=== PATIENT | female | born 1955 | race Caucasian/White ===

== ENCOUNTER 2023-04-25 11:24 | Outpatient (CLI) | payer MEDICARE, OTHER | END 2023-04-25 11:25 | disposition home or self-care (01) | LOC: CSHULT 11:24 | PROVIDERS: ATTEND Family Medicine | DX: R09.89 Other specified symptoms and signs involving the circulatory and respiratory systems (principal); E04.1 Nontoxic single thyroid nodule | CPT/HCPCS: 93880 ==

== ENCOUNTER 2024-04-12 09:34 | Day surgery (SDC) | payer MEDICARE ==
[2024-04-12] MEDS ORDERED: Sodium Bicarbonate 2.5 MEQ/5 ML SDV ONE (09:44)
[2024-04-12] MEDS ORDERED: Lidocaine 1% PF 5 ML VIAL ONE (09:44)
[2024-04-12 10:12] VITALS: BP 173/86; TEMP 98.1
== END 2024-04-12 11:15 | disposition home or self-care (01) ==
LOC: CSHULT 09:34
PROVIDERS: ATTEND Family Medicine
PROC: 0G9H3ZX Drainage of Right Thyroid Gland Lobe, Percutaneous Approach, Diagnostic (ICD-10-PCS; principal; 2024-04-12)
DX: E04.1 Nontoxic single thyroid nodule (principal)
CPT/HCPCS: 60100; 76942; 88173; 88305